=== PATIENT | male | born 1960 | race Caucasian/White ===

== ENCOUNTER 2021-08-28 11:46 | Inpatient (IN) | payer OTHER, MEDICAID ==
[~2021-08-28] VITALS: Ht 175.3 cm; Wt 166.7 kg
[2021-08-28] MEDS ORDERED: FUROSEMIDE 40 MG/4 ML VIAL IV ONE (12:00)
[2021-08-28 13:54] LABS: Basophils # (auto) 0 10 ^3/uL (0-0.2); Basophils % (auto) 0.4 % (0.0-2.0); Eosinophils # (auto) 0.1 10 ^3/uL (0-0.8); Eosinophils % (auto) 1.1 % (0.0-7.0); Hematocrit 45.2 % (41.0-53.0); Lymphocytes # (auto) 1.1 10 ^3/uL (0.4-5.4); Lymphocytes % (auto) 19.8 % (10.0-50.0); Mean Corpuscular Hemoglobin 28.4 pg (28.0-32.0); Mean Corpuscular Hgb Conc. 33.2 g/dL (32.0-36.0); Mean Corpuscular Volume 85.5 fL (80.0-100.0); Monocytes # (auto) 0.3 10 ^3/uL (0-1.3); Monocytes % (auto) 5.6 % (0.0-12.0); Neutrophils # (auto) 4.1 10 ^3/uL (1.6-8.6); Neutrophils % (auto) 73.1 % (37.0-80.0); Red Blood Cells 5.28 10^6/uL (4.5-5.90); Red Cell Distribution Width 13.6 % (11.8-14.3); White Blood Cell 5.6 10^3/uL (4.4-10.8)
[2021-08-28 14:11] LABS: Potassium 4.3 mmol/L (3.5-5.1)
[2021-08-28 14:17] LABS: Albumin 3.7 g/dL (3.4-5.0); BUN/Creatinine Ratio 14.7; Bilirubin, Total 0.6 mg/dL (0.2-1.0); Calcium 9.5 mg/dL (8.5-10.1); Total Protein 7.4 g/dL (6.4-8.2)
[2021-08-28] MEDS ORDERED: DEXTROSE (50%) 50ML SYRG IV PRN (15:30)
[2021-08-28] MEDS ORDERED: MORPHINE SULFATE 4 MG/ML SYR/VIAL IV PRN (15:30)
[2021-08-28] MEDS ORDERED: ACETAMINOPHEN 325 MG TAB PO PRN (15:30)
[2021-08-28] MEDS ORDERED: MORPHINE SULFATE INJECTION 2 MG/ML SYRG IV PRN (15:30)
[2021-08-28] MEDS ORDERED: DOCUSATE SOD 100 MG CAP PO PRN (15:30)
[2021-08-28] MEDS ORDERED: NITROGLYCERIN 0.4 MG SL TAB SL PRN (15:30)
[2021-08-28] MEDS ORDERED: TEMAZEPAM 15 MG CAP PO PRN (15:30)
[2021-08-28] MEDS ORDERED: ONDANSETRON HCL 4 MG/2 ML VIAL IV PRN (15:30)
[2021-08-28] MEDS ORDERED: HYDROcodone-ACET 5/325MG TAB PO PRN (15:30)
[2021-08-28] MEDS: ACCU-CHEK COMFORT CURVE STRIP VI SCH ×2 (17:37→22:13)
[2021-08-28] MEDS: InsuLIN REG 1unit/0.01ml Soln (100units/ml) SC SCH ×2 (17:44→22:14)
[2021-08-28] MEDS: BUDESONIDE (INHALATION) 0.5 MG/2 ML NEB NEB SCH (18:37)
[2021-08-28] MEDS: IPRATROPIUM BROM 0.5 MG/2.5ML INH SOL NEB PRN (18:37)
[2021-08-28 20:00] VITALS: BP 150/88
[2021-08-28 21:37] VITALS: BP 150/88
[2021-08-28] MEDS ORDERED: BUDE0.253 NEB (21:44)
[2021-08-28] MEDS ORDERED: ALBU108A5 INH (21:44)
[2021-08-28] MEDS ORDERED: LISI-283 PO (21:44)
[2021-08-28] MEDS ORDERED: AMOX500C2 PO (21:44)
[2021-08-28] MEDS ORDERED: ALBU0.084 NEB (21:44)
[2021-08-28] MEDS ORDERED: INSU1INJ5 SC (21:44)
[2021-08-28] MEDS ORDERED: METF-372 PO (21:44)
[2021-08-28] MEDS ORDERED: INSU100I4 SC (21:44)
[2021-08-28 22:52] VITALS: BP 153/54
[2021-08-29 03:45] LABS: Urine Bacteria NONE SEEN /hpf (None Seen); Urine Blood Negative /uL (Negative); Urine Specific Gravity 1.027 (1.001-1.035); Urine WBC <1 /hpf (0 - 3)
[2021-08-29 05:55] VITALS: BP 113/47
[2021-08-29 06:41] LABS: Basophils # (auto) 0.1 10 ^3/uL (0-0.2); Basophils % (auto) 2.3 % (0.0-2.0); Eosinophils # (auto) 0.1 10 ^3/uL (0-0.8); Eosinophils % (auto) 1.5 % (0.0-7.0); Hematocrit 44.2 % (41.0-53.0); Hemoglobin 14.7 g/dL (13.5-17.5); Lymphocytes # (auto) 0.9 10 ^3/uL (0.4-5.4); Lymphocytes % (auto) 17.7 % (10.0-50.0); Mean Corpuscular Hemoglobin 28.6 pg (28.0-32.0); Mean Corpuscular Hgb Conc. 33.2 g/dL (32.0-36.0); Mean Corpuscular Volume 85.9 fL (80.0-100.0); Monocytes # (auto) 0.3 10 ^3/uL (0-1.3); Monocytes % (auto) 6.6 % (0.0-12.0); Neutrophils # (auto) 3.6 10 ^3/uL (1.6-8.6); Neutrophils % (auto) 71.9 % (37.0-80.0); Nucleated Red Blood Cells % 0.1 %; Red Blood Cells 5.14 10^6/uL (4.5-5.90); Red Cell Distribution Width 13.6 % (11.8-14.3)
[2021-08-29] MEDS: IPRATROPIUM BROM 0.5 MG/2.5ML INH SOL NEB PRN (07:00)
[2021-08-29] MEDS: BUDESONIDE (INHALATION) 0.5 MG/2 ML NEB NEB SCH ×2 (07:01→18:58)
[2021-08-29] MEDS: ACCU-CHEK COMFORT CURVE STRIP VI SCH ×4 (07:02→22:24)
[2021-08-29] MEDS: InsuLIN REG 1unit/0.01ml Soln (100units/ml) SC SCH ×4 (07:03→22:24)
[2021-08-29 07:21] LABS: Potassium 4.4 mmol/L (3.5-5.1)
[2021-08-29 07:34] LABS: Albumin 3.4 g/dL (3.4-5.0); BUN/Creatinine Ratio 14.5; Calcium 8.7 mg/dL (8.5-10.1)
[2021-08-29 09:00] VITALS: BP 145/71
[2021-08-29] MEDS: ENOXAPARIN SOD 40 MG/0.4 ML SYRINGE SC SCH (11:41)
[2021-08-29] MEDS ORDERED: IPRATROPIUM BROM 0.5 MG/2.5ML INH SOL NEB SCH (12:15)
[2021-08-29] MEDS: ALBUTEROL SULF 2.5 MG/0.5ML(0.5%) NEB SOLN NEB SCH ×3 (12:31→22:02)
[2021-08-29 13:00] VITALS: BP 137/70
[2021-08-29] MEDS ORDERED: levoFLOXacin 500MG 100 ML IV ONE (13:00)
[2021-08-29] MEDS: PANTOPRAZOLE 40 MG TAB PO SCH (14:12)
[2021-08-29 16:58] VITALS: BP 132/82
[2021-08-29] MEDS: FUROSEMIDE 40 MG/4 ML VIAL IV SCH (17:24)
[2021-08-29] MEDS: IPRATROPIUM BROM 0.5 MG/2.5ML INH SOL NEB SCH ×2 (18:58→22:02)
[2021-08-29 22:11] VITALS: BP 123/70
[2021-08-29] MEDS: INSULIN LANTUS (GLARGINE) 1 /0.01ml (100units/ml) SC SCH (22:58)
[2021-08-30 05:00] VITALS: BP 140/82
[2021-08-30] MEDS: ACCU-CHEK COMFORT CURVE STRIP VI SCH ×4 (07:03→21:37)
[2021-08-30] MEDS: InsuLIN REG 1unit/0.01ml Soln (100units/ml) SC SCH ×4 (07:04→21:38)
[2021-08-30] MEDS: INSULIN LISPRO (HUMAN) 100 UNITS/ML ML SC SCH ×3 (07:05→17:18)
[2021-08-30] MEDS: BUDESONIDE (INHALATION) 0.5 MG/2 ML NEB NEB SCH ×2 (07:16→19:13)
[2021-08-30] MEDS: IPRATROPIUM BROM 0.5 MG/2.5ML INH SOL NEB SCH ×4 (07:16→22:08)
[2021-08-30] MEDS: ALBUTEROL SULF 2.5 MG/0.5ML(0.5%) NEB SOLN NEB SCH ×4 (07:16→22:08)
[2021-08-30 07:30] VITALS: BP 114/55
[2021-08-30 09:00] VITALS: BP 114/55
[2021-08-30] MEDS: FUROSEMIDE 40 MG/4 ML VIAL IV SCH (09:19)
[2021-08-30] MEDS: levoFLOXacin 500MG 100 ML IV SCH (09:19)
[2021-08-30] MEDS: ENOXAPARIN SOD 40 MG/0.4 ML SYRINGE SC SCH (09:20)
[2021-08-30] MEDS: INSULIN LANTUS (GLARGINE) 1 /0.01ml (100units/ml) SC SCH ×2 (09:21→21:38)
[2021-08-30] MEDS: PANTOPRAZOLE 40 MG TAB PO SCH (10:41)
[2021-08-30] MEDS: predniSONE 20 MG TAB PO SCH (10:43)
[2021-08-30 13:00] VITALS: BP 118/68
[2021-08-30 17:00] VITALS: BP 103/47
[2021-08-30 22:00] VITALS: BP 131/62
[2021-08-31] VITALS (7 sets, daily range): BP systolic 100–149; BP diastolic 52–90
[2021-08-31] MEDS: ACCU-CHEK COMFORT CURVE STRIP VI SCH ×4 (06:36→21:45)
[2021-08-31] MEDS: INSULIN LISPRO (HUMAN) 100 UNITS/ML ML SC SCH ×3 (06:46→17:00)
[2021-08-31] MEDS: BUDESONIDE (INHALATION) 0.5 MG/2 ML NEB NEB SCH ×2 (06:47→18:27)
[2021-08-31] MEDS: ALBUTEROL SULF 2.5 MG/0.5ML(0.5%) NEB SOLN NEB SCH ×5 (06:47→22:05)
[2021-08-31] MEDS: InsuLIN REG 1unit/0.01ml Soln (100units/ml) SC SCH ×4 (06:47→21:47)
[2021-08-31] MEDS: IPRATROPIUM BROM 0.5 MG/2.5ML INH SOL NEB SCH ×5 (06:47→22:05)
[2021-08-31] MEDS: FUROSEMIDE 40 MG/4 ML VIAL IV SCH (09:46)
[2021-08-31] MEDS: predniSONE 20 MG TAB PO SCH (09:47)
[2021-08-31] MEDS: levoFLOXacin 500MG 100 ML IV SCH (09:47)
[2021-08-31] MEDS: INSULIN LANTUS (GLARGINE) 1 /0.01ml (100units/ml) SC SCH ×2 (09:48→21:46)
[2021-08-31] MEDS: ENOXAPARIN SOD 40 MG/0.4 ML SYRINGE SC SCH (09:48)
[2021-08-31] MEDS: PANTOPRAZOLE 40 MG TAB PO SCH (09:48)
[2021-08-31] MEDS ORDERED: DEXTROSE (50%) 50ML SYRG IV PRN (16:45)
[2021-09-01 01:27] VITALS: BP 149/90
[2021-09-01 05:03] VITALS: BP 118/63
[2021-09-01] MEDS: IPRATROPIUM BROM 0.5 MG/2.5ML INH SOL NEB SCH ×5 (06:07→22:51)
[2021-09-01] MEDS: BUDESONIDE (INHALATION) 0.5 MG/2 ML NEB NEB SCH ×2 (06:07→19:11)
[2021-09-01] MEDS: ALBUTEROL SULF 2.5 MG/0.5ML(0.5%) NEB SOLN NEB SCH ×5 (06:07→22:52)
[2021-09-01] MEDS: ACCU-CHEK COMFORT CURVE STRIP VI SCH ×4 (06:33→22:03)
[2021-09-01] MEDS: InsuLIN REG 1unit/0.01ml Soln (100units/ml) SC SCH ×4 (06:34→22:00)
[2021-09-01] MEDS: INSULIN LISPRO (HUMAN) 100 UNITS/ML ML SC SCH ×3 (06:36→17:13)
[2021-09-01 09:00] VITALS: BP 132/65
[2021-09-01] MEDS: predniSONE 20 MG TAB PO SCH (09:45)
[2021-09-01] MEDS: ENOXAPARIN SOD 40 MG/0.4 ML SYRINGE SC SCH (09:45)
[2021-09-01] MEDS: FUROSEMIDE 40 MG/4 ML VIAL IV SCH (09:45)
[2021-09-01] MEDS: PANTOPRAZOLE 40 MG TAB PO SCH (09:45)
[2021-09-01] MEDS: levoFLOXacin 500MG 100 ML IV SCH (09:45)
[2021-09-01] MEDS: INSULIN LANTUS (GLARGINE) 1 /0.01ml (100units/ml) SC SCH ×2 (12:10→22:02)
[2021-09-01 13:00] VITALS: BP 130/76
[2021-09-01 17:00] VITALS: BP 126/57
[2021-09-01 22:00] VITALS: BP 113/59
[2021-09-01] MEDS: FLUTICASONE PROP NASAL SPR 0.05 % (50MCG) 16GM EACHNOSTRI SCH (22:00)
[2021-09-02 05:00] VITALS: BP 105/50
[2021-09-02] MEDS: IPRATROPIUM BROM 0.5 MG/2.5ML INH SOL NEB SCH ×3 (06:28→14:37)
[2021-09-02] MEDS: ALBUTEROL SULF 2.5 MG/0.5ML(0.5%) NEB SOLN NEB SCH ×3 (06:28→14:36)
[2021-09-02] MEDS: InsuLIN REG 1unit/0.01ml Soln (100units/ml) SC SCH ×2 (06:29→13:04)
[2021-09-02] MEDS: BUDESONIDE (INHALATION) 0.5 MG/2 ML NEB NEB SCH (06:29)
[2021-09-02] MEDS: ACCU-CHEK COMFORT CURVE STRIP VI SCH ×2 (06:32→13:04)
[2021-09-02] MEDS: INSULIN LISPRO (HUMAN) 100 UNITS/ML ML SC SCH ×2 (06:32→13:03)
[2021-09-02 08:00] VITALS: BP 132/65
[2021-09-02 09:00] VITALS: BP 152/78
[2021-09-02] MEDS: levoFLOXacin 500MG 100 ML IV SCH (09:59)
[2021-09-02] MEDS: predniSONE 20 MG TAB PO SCH (10:00)
[2021-09-02] MEDS: PANTOPRAZOLE 40 MG TAB PO SCH (10:00)
[2021-09-02] MEDS: INSULIN LANTUS (GLARGINE) 1 /0.01ml (100units/ml) SC SCH (10:00)
[2021-09-02] MEDS: ENOXAPARIN SOD 40 MG/0.4 ML SYRINGE SC SCH (10:00)
[2021-09-02] MEDS: FUROSEMIDE 40 MG/4 ML VIAL IV SCH (10:01)
[2021-09-02] MEDS: FLUTICASONE PROP NASAL SPR 0.05 % (50MCG) 16GM EACHNOSTRI SCH (10:03)
[2021-09-02 13:00] VITALS: BP 155/68
[2021-09-02] MEDS ORDERED: ALBU108A5 INH (13:06)
[2021-09-02] MEDS ORDERED: DOXY-346 PO (13:06)
[2021-09-02] MEDS ORDERED: BUDE0.253 NEB (13:06)
[2021-09-02 14:07] VITALS: BP 152/78
== END 2021-09-02 16:49 | disposition home health service (06) | DRG 291 ==
LOC: ER 11:46 → TELE 15:16 → TELE-WESTW 19:38
PROVIDERS: ADMIT Nurse Practitioner; ATTEND Nurse Practitioner
PROC: 5A09357 Assistance with Respiratory Ventilation, Less than 24 Consecutive Hours, Continuous Positive Airway Pressure (ICD-10-PCS; principal; 2021-08-28)
PROC: 5A09357 Assistance with Respiratory Ventilation, Less than 24 Consecutive Hours, Continuous Positive Airway Pressure (ICD-10-PCS; 2021-08-29)
PROC: 5A09357 Assistance with Respiratory Ventilation, Less than 24 Consecutive Hours, Continuous Positive Airway Pressure (ICD-10-PCS; 2021-08-30)
PROC: 5A09357 Assistance with Respiratory Ventilation, Less than 24 Consecutive Hours, Continuous Positive Airway Pressure (ICD-10-PCS; 2021-08-31)
PROC: 5A09357 Assistance with Respiratory Ventilation, Less than 24 Consecutive Hours, Continuous Positive Airway Pressure (ICD-10-PCS; 2021-09-01)
DX: I11.0 Hypertensive heart disease with heart failure (principal); J96.01 Acute respiratory failure with hypoxia; I50.33 Acute on chronic diastolic (congestive) heart failure; J44.1 Chronic obstructive pulmonary disease with (acute) exacerbation; Z68.43 Body mass index [BMI] 50.0-59.9, adult; G47.33 Obstructive sleep apnea (adult) (pediatric); Z20.822 Contact with and (suspected) exposure to COVID-19; E66.01 Morbid (severe) obesity due to excess calories; F17.210 Nicotine dependence, cigarettes, uncomplicated; Z77.098 Contact with and (suspected) exposure to other hazardous, chiefly nonmedicinal, chemicals; Z79.51 Long term (current) use of inhaled steroids; Z80.8 Family history of malignant neoplasm of other organs or systems; Z83.3 Family history of diabetes mellitus; Z71.3 Dietary counseling and surveillance; Z79.4 Long term (current) use of insulin; K80.20 Calculus of gallbladder without cholecystitis without obstruction; E11.65 Type 2 diabetes mellitus with hyperglycemia
CPT/HCPCS: 36415; 36600; 71045; 71250; 80053; 80061; 81001; 82805; 82962; 83036; 83880; 84484; 85025; 85379; 93005; 93306; 94640; 94660; 94762; 96365; 96375; G0378; J1815; J1956

== ENCOUNTER 2022-12-03 10:46 | Emergency (ER) | payer OTHER, MEDICAID ==
[~2022-12-03] VITALS: Ht 175.3 cm; Wt 171.5 kg
[~2022-12-03 10:46] MED LIST: ALBU108A5 INH; BUDE0.253 NEB; DOXY-346 PO; INSU100I4 SC; INSU1INJ5 SC; LISI-283 PO; METF-372 PO
[2022-12-03 11:49] LABS: Basophils # (auto) 0 10 ^3/uL (0-0.2); Basophils % (auto) 0.4 % (0.0-2.0); Eosinophils # (auto) 0.1 10 ^3/uL (0-0.8); Eosinophils % (auto) 1.6 % (0.0-7.0); Hematocrit 44.5 % (41.0-53.0); Hemoglobin 14.5 g/dL (13.5-17.5); Lymphocytes # (auto) 1.3 10 ^3/uL (0.4-5.4); Lymphocytes % (auto) 20.2 % (10.0-50.0); Mean Corpuscular Hemoglobin 27.7 pg (28.0-32.0); Mean Corpuscular Hgb Conc. 32.6 g/dL (32.0-36.0); Mean Corpuscular Volume 84.9 fL (80.0-100.0); Monocytes # (auto) 0.4 10 ^3/uL (0-1.3); Monocytes % (auto) 6.3 % (0.0-12.0); Neutrophils # (auto) 4.5 10 ^3/uL (1.6-8.6); Neutrophils % (auto) 71.5 % (37.0-80.0); Red Blood Cells 5.25 10^6/uL (4.5-5.90); White Blood Cell 6.3 10^3/uL (4.4-10.8)
[2022-12-03 12:05] LABS: INR 0.95 (0.9-1.15); Partial Thromboplastin Time 28.1 SEC (24.5-34.5)
[2022-12-03 12:13] LABS: Albumin 3.7 g/dL (3.4-5.0); Calcium 9.3 mg/dL (8.5-10.1); Potassium 4.5 mmol/L (3.5-5.1)
[2022-12-03 12:16] LABS: BUN/Creatinine Ratio 18.3 (10.0-20.0)
[2022-12-03 12:18] LABS: Bilirubin, Total 0.5 mg/dL (0.2-1.0)
[2022-12-03] MEDS ORDERED: IPRATROPIUM BROM 0.5 MG/2.5ML INH SOL NEB ONE (13:15)
[2022-12-03] MEDS ORDERED: ALBUTEROL SULF 2.5 MG/0.5ML(0.5%) NEB SOLN NEB ONE (13:15)
[2022-12-03] MEDS ORDERED: ALBUAER3 IN (18:57)
[2022-12-03] MEDS ORDERED: ALBU0.084 NEB (18:57)
[2022-12-03] MEDS ORDERED: BUDE0.5S IN (18:57)
[2022-12-03 19:30] VITALS: BP 142/67
== END 2022-12-03 19:47 | disposition home or self-care (01) ==
LOC: ER 10:46
DX: J45.901 Unspecified asthma with (acute) exacerbation (principal); E11.9 Type 2 diabetes mellitus without complications
CPT/HCPCS: 36415; 71045; 80053; 83880; 84484; 85025; 85610; 85730; 93005; 94640; 99285; J7644

== ENCOUNTER 2023-11-23 15:32 | Emergency (ER) | payer OTHER, MEDICAID ==
[~2023-11-23] VITALS: Ht 172.7 cm; Wt 147.4 kg
[~2023-11-23 15:32] MED LIST changes: +ALBU0.084 NEB; +ALBUAER3 IN; +BUDE0.5S IN; +COLC1CAP PO; +INDO50CA82 PO
[2023-11-23 19:46] LABS: Basophils # (auto) 0 10 ^3/uL (0-0.2); Basophils % (auto) 0.3 % (0.0-2.0); Eosinophils # (auto) 0.1 10 ^3/uL (0-0.8); Eosinophils % (auto) 1.1 % (0.0-7.0); Hematocrit 37.9 % (41.0-53.0); Hemoglobin 12.8 g/dL (13.5-17.5); Lymphocytes # (auto) 1.3 10 ^3/uL (0.4-5.4); Lymphocytes % (auto) 18.7 % (10.0-50.0); Mean Corpuscular Hemoglobin 27.8 pg (28.0-32.0); Mean Corpuscular Hgb Conc. 33.7 g/dL (32.0-36.0); Mean Corpuscular Volume 82.5 fL (80.0-100.0); Monocytes # (auto) 0.5 10 ^3/uL (0-1.3); Monocytes % (auto) 7.5 % (0.0-12.0); Neutrophils # (auto) 4.9 10 ^3/uL (1.6-8.6); Neutrophils % (auto) 72.4 % (37.0-80.0); Red Blood Cells 4.59 10^6/uL (4.5-5.90); Red Cell Distribution Width 14.8 % (11.8-14.3); White Blood Cell 6.8 10^3/uL (4.4-10.8)
[2023-11-23 19:51] LABS: Chloride 102 mmol/L (98-107); Potassium 4.6 mmol/L (3.5-5.1); Sodium 136 mmol/L (136-145)
[2023-11-23 19:52] LABS: Anion Gap 5 (5-15); Carbon Dioxide 29 mmol/L (20-30)
[2023-11-23 19:53] LABS: Calcium 9.5 mg/dL (8.5-10.1)
[2023-11-23 19:57] LABS: Glucose 222 mg/dL (74-106)
[2023-11-23 19:58] LABS: BUN/Creatinine Ratio 21.6 (10.0-20.0); Blood Urea Nitrogen 16 mg/dL (9-23)
[2023-11-23] MEDS ORDERED: BACDST PO (20:56)
[2023-11-23] MEDS: methylPREDNISolone SOD SUCC 125 MG/2 ML VL IM ONE (21:17)
[2023-11-23] MEDS: KETOROLAC TROMETH 30 MG/ML 1ML VIAL IM ONE (21:17)
[2023-11-23 21:25] VITALS: BP 150/67; PULSE 76; RESP 16; O2SAT 96
== END 2023-11-23 21:30 | disposition home or self-care (01) ==
LOC: ER 15:32
DX: M10.9 Gout, unspecified (principal); E11.621 Type 2 diabetes mellitus with foot ulcer; L97.511 Non-pressure chronic ulcer of other part of right foot limited to breakdown of skin; J44.9 Chronic obstructive pulmonary disease, unspecified; I10 Essential (primary) hypertension; F17.210 Nicotine dependence, cigarettes, uncomplicated; F12.10 Cannabis abuse, uncomplicated; Z79.899 Other long term (current) drug therapy
CPT/HCPCS: 36415; 80048; 85025; 93971; 96372; 99285; J1885; J2919